=== PATIENT | female | born 1995 | race Two or more races ===

== ENCOUNTER 2020-06-25 19:19 | Emergency (ER) | payer MEDICAID, OTHER ==
[~2020-06-25] VITALS: Ht 172.7 cm; Wt 49.9 kg
[2020-06-25 19:21] VITALS: BP 127/81
== END 2020-06-25 22:22 | disposition left against medical advice (07) ==
LOC: ER 19:21
DX: K59.00 Constipation, unspecified (principal); K60.2 Anal fissure, unspecified